=== PATIENT | male | born 1995 | race Caucasian/White ===

== ENCOUNTER 2020-04-16 17:27 | Observation (INO) | payer OTHER, SELFPAY ==
[2020-04-16] VITALS (19 sets, daily range): BP systolic 122–147; BP diastolic 58–91; PULSE 52–86; RESP 11–18; TEMP 36.3–37; O2SAT 98–100; BMI 25.7
--- NOTE | 2020-04-16 | PATH_ITS ---
[facility] Accession Number: [id number] . 01 Material submitted: . appendix - APPENDIX . 01 Clinical history: . STOMACH PAIN, FEVER . 02 Diagnosis: Appendix, Appendectomy: Acute appendicitis. No evidence of neoplasm. MRV 04/22/2020 1241 Local . 02 Electronically signed: . Moses Mars MD, PhD, Pathologist NPI- [id number] . 01 Gross description: . Received in formalin, labeled appendix, and consists of a 7.5 cm in length x 1.0 cm in diameter vermiform appendix with minimal attached hartman-yellow lobulated mesoappendix. The serosa is hartman-pink and smooth with focal areas of disruption and fibrinous adhesions. Sectioning reveals a hartman-pink focally hemorrhagic mucosa. The lumen measures up to 0.4 cm and the wall thickness measures 0.1 cm. No perforation sites are identified. Addresser sections are submitted to include the en face margin (blue), central cross-sections and bisected tip on cassette A1. ([id number]) /MRV 04/18/2020 1420 Local . 02 Pathologist provided ICD-10: K35.80 . 02 CPT . 140118 Performed at: 01 [facility] [address], [place], [place] [id number] MD Amador Dawn MD Phone: [phone] Performed at: 02 [facility] [address] [place], [place] [id number] MD Romina Sanchez MD Phone: [phone]
--- NOTE | 2020-04-16 17:40 | ED_ITS ---
HPI - Abdominal Pain <[facility] Last Filed: 04/16/20 20:31> General Chief Complaint: Abdominal Pain Stated Complaint: stomach pain, fever Time Seen by Provider: 04/16/20 17:30 Source: patient Mode of arrival: Ambulatory Limitations: no limitations History of Present Illness HPI narrative: This is a 24-year-old male, nonsmoker, who has no contributory medical history presents to ED with chief complain of periumbilical abdominal pain and right lower quadrant pain for last 2 hours. Patient reports nausea but no vomiting. Patient feels chills without fever. He describes pain as constant aching and worse with movement. Patient denies urinary symptoms such as urgency, frequency, dysuria, hematuria. Patient denies bulging in his groin or swelling or pain to his testicular area. Patient reports he occasionally has generalized abdominal pain which radiates to back but this feels different and constant. Patient had last loose bowel movement this morning which was painful. Patient does not have primary care physician. Related Data Home Medications Medication Instructions Recorded Confirmed No Known Home Medications 04/16/20 04/16/20 Allergies Allergy/AdvReac Type Severity Reaction Status Date / Time No Known Drug Allergies Allergy Verified 04/16/20 17:35 Review of Systems <[facility] Last Filed: 04/16/20 20:31> Review of Systems Narrative: General: Denies fever, (+) chills, fatigue, malaise, sweats. HEENT: Denies sinus pain, ear pain, sore throat, difficulty swallowing, dizziness. Respiratory: Denies dyspnea, cough, wheezing, hemoptysis, sputum. Cardiovascular: Denies chest pain, palpitations, orthopnea, edema. Gastrointestinal: See HPI : Denies dysuria, frequency, incontinence, hematuria, urinary retention. Musculoskeletal: Denies weakness, joint pain or bony pain. Skin: Denies rash, skin lesions, or other. Neurologic: Denies weakness, headache, numbness, change in speech, confusion, seizures, incoordination. Psychiatric: No concerning psychosocial issues. 12-point review of systems is negative except for those stated above. Patient History <[facility] Last Filed: 04/16/20 20:31> Medical History No significant past medical history (Acute) Surgical History No pertinent past surgical history (Acute) Social History household members: other Smoking Status: Current every day smoker alcohol intake: current Smoking Status: Never smoker alcohol intake frequency: 0-2 drinks per day Substance Use Type: marijuana Exam <HIGINIO Cagle - Last Filed: 04/16/20 20:31> Narrative Exam Narrative: GEN: Alert, oriented x 3, well appearing and nourished, and in no acute distress. Head: Normal cephalic, atraumatic. No scalp or temporal tenderness, palpable mass or rash. EYES: Pupils are equal, round, and reactive to light and accommodation. E xtraocular muscles are intact bilaterally. There is no subconjunctival hemorrhage, exudate and sclera non-icteric. ENT: Hearing grossly intact. Nose without bleeding, purulent discharge or deviation. Mucous membrane moist, no mucosal lesion. Throat without erythema, tonsillar hypertrophy or exudate. Uvula in midline, airway patent. Neck: Trachea in midline. No JVD, non-tender without lymphadenopathy. No masses or thyroid megaly. Supple, non-tender and no meningeal signs. CARDIAC: Normal regular rate and rhythm without murmurs, gallops, or rubs. No chest wall tenderness. No peripheral edema, cyanosis or pallor. Capillary refill is less than 2 seconds. RESPIRATORY: Lungs are clear to auscultate bilaterally. No cough, wheezes, rales, or rhonchi. No stridor, respiratory distress, increase work of breathing, or accessary muscle used. ABD: Abdomen soft and non-distended. McBurney's point tenderness to palpate. No guarding. Bowel sounds are normal in all 4 quadrants. There is no palpable masses or organomegaly. EXT: Full painless ROM of all extremities with no loss of sensation, strength, effusion or edema. SKIN: Warm, dry, normal color for patient. No erythema, lesions or rash over visible areas. BACK: Nontender without deformity or crepitance. No flank tenderness. NEUROLOGICAL: Alert and oriented to place, time and person. Sensation and motor function intact bilaterally. No facial droops, dysphasia. PSYCHIATRIC: Good judgement and reason, without hallucinations, abnormal affect or abnormal behaviors during the examination. Patient is not suicidal. Initial Vital Signs Initial Vital Signs: Vital Signs Temperature 98.6 F 04/16/20 17:30 Pulse Rate 56 L 04/16/20 17:30 Respiratory Rate 14 04/16/20 17:30 Blood Pressure 141/87 H 04/16/20 17:30 Pulse Oximetry 100 04/16/20 17:30 <Zane Lord DO - Last Filed: 04/17/20 07:27> Initial Vital Signs Initial Vital Signs: Vital Signs Temperature 98.6 F 04/16/20 17:30 Pulse Rate 56 L 04/16/20 17:30 Respiratory Rate 14 04/16/20 17:30 Blood Pressure 141/87 H 04/16/20 17:30 Pulse Oximetry 100 04/16/20 17:30 Scores <[facility] - Last Filed: 04/16/20 20:31> GCS Crocher[place] coma scale eye opening: Spontaneous [place] coma scale verbal response: Orientated [place] coma scale motor response: Obey commands Crocheron coma scale total score: 15 qSOFA Altered Mental Status (GCS <15): No Respiratory rate greater than/equal to 22: No Systolic blood pressure less than or equal to 100: No qSOFA Total: 0 0-1 Not High Risk 1-3 High risk Course <[facility] - Last Filed: 04/16/20 20:31> Orders Ordered: Acetaminophen (Tylenol) 650 mg PO Q6HR [facility] Last Admin: 04/17/20 05:41 Dose: 650 mg Documented by: Admin: 04/17/20 00:19 Dose: 650 mg Documented by: JAYJAY Lactated Ringer's (Lactated Ringers) 1,000 mls @ 120 mls/hr IV CONT [facility] Last Admin: 04/17/20 00:21 Dose: 120 mls/hr Documented by: Infusion: 04/17/20 00:21 Dose: 120 mls/hr Documented by: Infusion: 04/16/20 23:27 Dose: 120 mls/hr Documented by: Admin: 04/16/20 23:04 Dose: 120 mls/hr Documented by: Infusion: 04/16/20 23:04 Dose: 120 mls/hr Documented by: Admin: 04/16/20 21:22 Dose: 120 mls/hr Documented by: CADY Ketorolac Tromethamine (Toradol) 30 mg IV Q6HR PRN PRN Reason: Pain, Severe (7-10) Stop: 04/21/20 21:30 Last Admin: 04/17/20 06:24 Dose: 30 mg Documented by: Admin: 04/17/20 00:22 Dose: 30 mg Documented by: JAYJAY Naloxone HCl (Narcan) 0.2 mg IV Q2MIN PRN PRN Reason: Opiate Reversal Ondansetron HCl (Zofran) 4 mg IV Q8HR PRN PRN Reason: Nausea And Vomiting Last Admin: 04/17/20 00:28 Dose: 4 mg Documented by: JAYJAY Oxycodone HCl (Percolone) 5 mg PO Q6HR PRN PRN Reason: Pain, Moderate (4-6) Last Admin: 04/17/20 01:24 Dose: 5 mg Documented by: TRU Scopolamine (Transderm-Scop) 1 patch TOP PRN PRN PRN Reason: Nausea Discontinued Medications Bupivacaine HCl (Sensorcaine 0.25% (Pf)) 30 ml INJ NOW ONE Stop: 04/16/20 22:26 Last Admin: 04/16/20 22:25 Dose: 30 ml Documented by: MORRIS Fentanyl (Sublimaze) 0 mcg IV Q5MIN PRN PRN Reason: Pain, Severe (7-10) Hydromorphone HCl (Dilaudid) 0 mg IV Q5MIN PRN PRN Reason: Pain, Mild (1-3) Sodium Chloride (Normal Saline 0.9%) 1,000 mls @ 150 mls/hr IV CONT JEANNETTE Last Admin: 04/16/20 17:50 Dose: 150 mls/hr Documented by: PIETRO Piperacillin/Tazobactam/Dextrose (Zosyn) 3.375 gm in 50 mls @ 100 mls/hr IV NOW ONE Stop: 04/16/20 19:09 Last Infusion: 04/16/20 20:17 Dose: 0 mls/hr Documented by: Admin: 04/16/20 19:46 Dose: 100 mls/hr Documented by: PIETRO Ketorolac Tromethamine (Toradol) 15 mg IV NOW ONE Stop: 04/16/20 17:40 Last Admin: 04/16/20 17:51 Dose: 15 mg Documented by: PIETRO Ondansetron HCl (Zofran) 4 mg IV NOW ONE Stop: 04/16/20 17:40 Last Admin: 04/16/20 17:51 Dose: 4 mg Documented by: PIETRO Ondansetron HCl (Zofran) 4 mg IV NOW PRN PRN Reason: Nausea And Vomiting Oxycodone HCl (Percolone) 5 mg PO PACUNOW PRN PRN Reason: Mild or moderate pain Reevaluation(s) Reevaluation #1: Patient reports pain and nausea improved after medications. Updated patient on CT findings of acute appendicitis which requires surgical interventions. Patient has no further questions at this time. Time: 18:44 Consultations Consultation #1: Dr. Dodge currently in OR doing surgery and informed the patient's case. Covid test was requested and being done. Time: 18:45 Consultation #2: Dr. Dodge called as soon as he is out in OR. He kindly accepted patient's care for appendectomy. Time: 20:05 Vital Signs Vital signs: Vital Signs - 8 hr 04/16/20 17:30 04/16/20 17:31 04/16/20 17:32 Temperature 98.6 F Pulse Rate 56 L 55 L Respiratory Rate 14 Blood Pressure 141/87 H 141/87 H Pulse Oximetry 100 99 04/16/20 18:00 04/16/20 18:30 04/16/20 19:00 Temperature Pulse Rate 52 L 71 77 Respiratory Rate Blood Pressure 144/70 H 142/65 H 140/63 Pulse Oximetry 100 100 100 04/16/20 19:30 04/16/20 19:31 04/16/20 20:00 Temperature Pulse Rate 76 76 70 Respiratory Rate Blood Pressure 127/58 L Pulse Oximetry 99 99 100 04/16/20 20:01 Temperature Pulse Rate 76 Respiratory Rate Blood Pressure 133/60 Pulse Oximetry 99 <Zane Lord, DO - Last Filed: 04/17/20 07:27> Orders Ordered: Acetaminophen (Tylenol) 650 mg PO Q6HR JEANNETTE Last Admin: 04/17/20 05:41 Dose: 650 mg Documented by: Admin: 04/17/20 00:19 Dose: 650 mg Documented by: JAYJAY Lactated Ringer's (Lactated Ringers) 1,000 mls @ 120 mls/hr IV CONT JEANNETTE Last Admin: 04/17/20 00:21 Dose: 120 mls/hr Documented by: Infusion: 04/17/20 00:21 Dose: 120 mls/hr Documented by: Infusion: 04/16/20 23:27 Dose: 120 mls/hr Documented by: Admin: 04/16/20 23:04 Dose: 120 mls/hr Documented by: Infusion: 04/16/20 23:04 Dose: 120 mls/hr Documented by: Admin: 04/16/20 21:22 Dose: 120 mls/hr Documented by: CADY Ketorolac Tromethamine (Toradol) 30 mg IV Q6HR PRN PRN Reason: Pain, Severe (7-10) Stop: 04/21/20 21:30 Last Admin: 04/17/20 06:24 Dose: 30 mg Documented by: Admin: 04/17/20 00:22 Dose: 30 mg Documented by: JAYJAY Naloxone HCl (Narcan) 0.2 mg IV Q2MIN PRN PRN Reason: Opiate Reversal Ondansetron HCl (Zofran) 4 mg IV Q8HR PRN PRN Reason: Nausea And Vomiting Last Admin: 04/17/20 00:28 Dose: 4 mg Documented by: JAYJAY Oxycodone HCl (Percolone) 5 mg PO Q6HR PRN PRN Reason: Pain, Moderate (4-6) Last Admin: 04/17/20 01:24 Dose: 5 mg Documented by: TRU Scopolamine (Transderm-Scop) 1 patch TOP PRN PRN PRN Reason: Nausea Discontinued Medications Bupivacaine HCl (Sensorcaine 0.25% (Pf)) 30 ml INJ NOW ONE Stop: 04/16/20 22:26 Last Admin: 04/16/20 22:25 Dose: 30 ml Documented by: MORRIS Fentanyl (Sublimaze) 0 mcg IV Q5MIN PRN PRN Reason: Pain, Severe (7-10) Hydromorphone HCl (Dilaudid) 0 mg IV Q5MIN PRN PRN Reason: Pain, Mild (1-3) Sodium Chloride (Normal Saline 0.9%) 1,000 mls @ 150 mls/hr IV CONT JEANNETTE Last Admin: 04/16/20 17:50 Dose: 150 mls/hr Documented by: PIETRO Piperacillin/Tazobactam/Dextrose (Zosyn) 3.375 gm in 50 mls @ 100 mls/hr IV NOW ONE Stop: 04/16/20 19:09 Last Infusion: 04/16/20 20:17 Dose: 0 mls/hr Documented by: Admin: 04/16/20 19:46 Dose: 100 mls/hr Documented by: PIETRO Ketorolac Tromethamine (Toradol) 15 mg IV NOW ONE Stop: 04/16/20 17:40 Last Admin: 04/16/20 17:51 Dose: 15 mg Documented by: PIETRO Ondansetron HCl (Zofran) 4 mg IV NOW ONE Stop: 04/16/20 17:40 Last Admin: 04/16/20 17:51 Dose: 4 mg Documented by: PIETRO Ondansetron HCl (Zofran) 4 mg IV NOW PRN PRN Reason: Nausea And Vomiting Oxycodone HCl (Percolone) 5 mg PO PACUNOW PRN PRN Reason: Mild or moderate pain Vital Signs Vital signs: Vital Signs - 8 hr 04/16/20 17:30 04/16/20 17:31 04/16/20 17:32 Temperature 98.6 F Pulse Rate 56 L 55 L Respiratory Rate 14 Blood Pressure 141/87 H 141/87 H Pulse Oximetry 100 99 04/16/20 18:00 04/16/20 18:30 04/16/20 19:00 Temperature Pulse Rate 52 L 71 77 Respiratory Rate Blood Pressure 144/70 H 142/65 H 140/63 Pulse Oximetry 100 100 100 04/16/20 19:30 04/16/20 19:31 04/16/20 20:00 Temperature Pulse Rate 76 76 70 Respiratory Rate Blood Pressure 127/58 L Pulse Oximetry 99 99 100 04/16/20 20:01 Temperature Pulse Rate 76 Respiratory Rate Blood Pressure 133/60 Pulse Oximetry 99 MDM - Abdominal Pain <Ryder HIGINIO Kang - Last Filed: 04/16/20 20:31> Differential Diagnosis Differential diagnosis: Likely acute appendicitis, calculus of kidney and other (UTI, ) Medical Records Attestation: I reviewed the patient's medical records. Lab Data Attestation: I reviewed the patient's lab results. Result diagrams: 04/16/20 17:35 04/16/20 17:35 Labs: Lab Results 04/16/20 04/16/20 04/16/20 Range/Units 17:35 17:35 17:35 WBC 10.0 (4.5-11.0) X10^3/uL RBC 4.90 (4.5-5.9) X10^6/uL Hgb 15.1 (13.5-17.5) g/dL Hct 43.5 (41-53) % MCV 88.9 (80-100) fL MCH 30.9 (26-34) PG MCHC 34.8 (30-36) % RDW 12.8 (11.6-14.8) % Plt Count 222 (150-400) X10^3/uL Neut % (Auto) 70.6 (50-75) % Lymph % (Auto) 23.2 L (25-40) % [place] % (Auto) 4.7 (3-14) % Eos % (Auto) 0.9 L (2-4) % Baso % (Auto) 0.6 (0-2) % Neut # (Auto) 7000 (3157-5925) /uL Lymph # (Auto) 2300 (5002-0585) /uL [place] # (Auto) 500 (0-900) /uL Eos # (Auto) 100 (0-450) /uL Baso # (Auto) 100 (0-100) /uL Sodium 138 (137-145) mmol/L Potassium 3.4 (3.4-5.1) mmol/L Chloride 103 (98-107) mmol/L Carbon Dioxide 27 (22-32) mmol/L BUN 15 (9-20) mg/dL Creatinine 0.97 (0.66-1.25) mg/dL Estimated GFR > 60.0 (>60) mL/min BUN/Creatinine Ratio 15.5 (6-22) Glucose 108 H (70-100) mg/dL Lactate 1.6 (0.7-2.1) mmol/L Calcium 9.3 (8.4-10.2) mg/dL Total Bilirubin 0.9 (0.2-1.3) mg/dL AST 26 (17-59) IU/L ALT 24 (<50) IU/L Alkaline Phosphatase 69 (38-126) U/L Total Protein 7.7 (6.3-8.2) g/dL Albumin 4.6 (3.5-5.0) g/dL Globulin 3.1 (1.7-4.1) g/dL Albumin/Globulin Ratio 1.5 (1.0-2.8) Lipase 56 (23-300) U/L COVID-19 PCR (Negative) 04/16/20 Range/Units 18:45 WBC (4.5-11.0) X10^3/uL RBC (4.5-5.9) X10^6/uL Hgb (13.5-17.5) g/dL Hct (41-53) % MCV (80-100) fL MCH (26-34) PG MCHC (30-36) % RDW (11.6-14.8) % Plt Count (150-400) X10^3/uL Neut % (Auto) (50-75) % Lymph % (Auto) (25-40) % [place] % (Auto) (3-14) % Eos % (Auto) (2-4) % Baso % (Auto) (0-2) % Neut # (Auto) (6516-9902) /uL Lymph # (Auto) (8928-2451) /uL [place] # (Auto) (0-900) /uL Eos # (Auto) (0-450) /uL Baso # (Auto) (0-100) /uL Sodium (137-145) mmol/L Potassium (3.4-5.1) mmol/L Chloride (98-107) mmol/L Carbon Dioxide (22-32) mmol/L BUN (9-20) mg/dL Creatinine (0.66-1.25) mg/dL Estimated GFR (>60) mL/min BUN/Creatinine Ratio (6-22) Glucose (70-100) mg/dL Lactate (0.7-2.1) mmol/L Calcium (8.4-10.2) mg/dL Total Bilirubin (0.2-1.3) mg/dL AST (17-59) IU/L ALT (<50) IU/L Alkaline Phosphatase (38-126) U/L Total Protein (6.3-8.2) g/dL Albumin (3.5-5.0) g/dL Globulin (1.7-4.1) g/dL Albumin/Globulin Ratio (1.0-2.8) Lipase (23-300) U/L COVID-19 PCR Negative (Negative) Imaging Data CT scan - abdomen/pelvis: Radiologist's Impression: [address] [address] [address] Scan Report Signed Patient: Toy Reed PMR#: [id number] : 1995Acct:[id number] Age/Sex: MDate of Service: 04/16/20 Loc: ED Accession Number: [id number] Procedure: CT abdomen pelvis w con Ordering Provider: Ryder Kang PROCEDURE: CT ABDOMEN PELVIS W CON INDICATIONS: RLQ pain, nausea TECHNIQUE: After the administration of intravenous contrast, 5 mm thick sections acquired from the diaphragm to the symphysis. 5 mm coronal and sagittal reformats were acquired. For radiation dose reduction, the following was used: automated exposure control, adjustment of mA and/or kV according to patient size. COMPARISON: None. FINDINGS: Image quality: Excellent. ABDOMEN: Lung bases: Lung bases are clear. Heart size is normal. Solid organs: Liver is normal in size and enhancement. Gallbladder is unremarkable. Biliary system is non dilated. Pancreas enhances normally. Spleen is normal in size and enhancement. No adrenal nodules. Kidneys demonstrate normal size and enhancement, without hydronephrosis. Peritoneum and bowel: Bowel loops demonstrate normal wall thickness and caliber. No free fluid or air. The appendix is dilated and filled with fluid and inflamed and enhancing. It measures approximately 8 mm in diameter. There is inflammatory change in the surrounding fat. No free air or abscess cavity. Nodes and vessels: No retroperitoneal or mesenteric adenopathy by size criteria. Aorta and inferior vena cava are normal in size. Miscellaneous: No ventral hernias. PELVIS: Genitourinary: Bladder wall thickness is normal. Miscellaneous: No inguinal hernias or adenopathy. Bones: No suspicious bony lesions. No vertebral body compression fractures. IMPRESSION: Acute appendicitis with suspicion for impending rupture Dictated by: Grzegorz Molina M.D. on 04/16/2020 at 18:25 Approved by: Grzegorz Molina M.D. on 04/16/2020 at 18:26 [facility] Narrative Medical decision making narrative: This is a 24-year-old male without contributory medical history presents to ED with nausea and right lower quadrant and periumbilical abdominal pain 2 hours before coming into ED. patient reports last bowel movement this morning which was loose painful. Patient is afebrile but with chills. Nontoxic appearing. Physical exam consistent with appendicitis with positive McBurney's point tenderness. CT test shows enlarged appendectomy filled with fluid and inflamed and measures approximately 8 mm in diameter. There is inflammatory changes seen in the or surround and fat. No free air or abscess cavity seen with suspicion for impending rupture. CBC shows no leukocytosis. Unremarkable chemistry test. Normal lactate and lipase. Dr. Dodge informed through OR staff. Covid swab is pending. Pain and nausea well managed after Toradol and Zofran. Patient is kept NPO since 1600 (snack bar) and last liquid fluid taken at noon. Ordered Zosyn 3.375 gm IV. <Zane Lord DO - Last Filed: 04/17/20 07:27> Lab Data Labs: Lab Results 04/16/20 04/16/20 04/16/20 Range/Units 17:35 17:35 17:35 WBC 10.0 (4.5-11.0) X10^3/uL RBC 4.90 (4.5-5.9) X10^6/uL Hgb 15.1 (13.5-17.5) g/dL Hct 43.5 (41-53) % MCV 88.9 (80-100) fL MCH 30.9 (26-34) PG MCHC 34.8 (30-36) % RDW 12.8 (11.6-14.8) % Plt Count 222 (150-400) X10^3/uL Neut % (Auto) 70.6 (50-75) % Lymph % (Auto) 23.2 L (25-40) % [place] % (Auto) 4.7 (3-14) % Eos % (Auto) 0.9 L (2-4) % Baso % (Auto) 0.6 (0-2) % Neut # (Auto) 7000 (3755-1529) /uL Lymph # (Auto) 2300 (7616-9267) /uL [place] # (Auto) 500 (0-900) /uL Eos # (Auto) 100 (0-450) /uL Baso # (Auto) 100 (0-100) /uL Sodium 138 (137-145) mmol/L Potassium 3.4 (3.4-5.1) mmol/L Chloride 103 (98-107) mmol/L Carbon Dioxide 27 (22-32) mmol/L BUN 15 (9-20) mg/dL Creatinine 0.97 (0.66-1.25) mg/dL Estimated GFR > 60.0 (>60) mL/min BUN/Creatinine Ratio 15.5 (6-22) Glucose 108 H (70-100) mg/dL Lactate 1.6 (0.7-2.1) mmol/L Calcium 9.3 (8.4-10.2) mg/dL Total Bilirubin 0.9 (0.2-1.3) mg/dL AST 26 (17-59) IU/L ALT 24 (<50) IU/L Alkaline Phosphatase 69 (38-126) U/L Total Protein 7.7 (6.3-8.2) g/dL Albumin 4.6 (3.5-5.0) g/dL Globulin 3.1 (1.7-4.1) g/dL Albumin/Globulin Ratio 1.5 (1.0-2.8) Lipase 56 (23-300) U/L COVID-19 PCR (Negative) 04/16/20 Range/Units 18:45 WBC (4.5-11.0) X10^3/uL RBC (4.5-5.9) X10^6/uL Hgb (13.5-17.5) g/dL Hct (41-53) % MCV (80-100) fL MCH (26-34) PG MCHC (30-36) % RDW (11.6-14.8) % Plt Count (150-400) X10^3/uL Neut % (Auto) (50-75) % Lymph % (Auto) (25-40) % [place] % (Auto) (3-14) % Eos % (Auto) (2-4) % Baso % (Auto) (0-2) % Neut # (Auto) (6105-9398) /uL Lymph # (Auto) (6814-4258) /uL [place] # (Auto) (0-900) /uL Eos # (Auto) (0-450) /uL Baso # (Auto) (0-100) /uL Sodium (137-145) mmol/L Potassium (3.4-5.1) mmol/L Chloride (98-107) mmol/L Carbon Dioxide (22-32) mmol/L BUN (9-20) mg/dL Creatinine (0.66-1.25) mg/dL Estimated GFR (>60) mL/min BUN/Creatinine Ratio (6-22) Glucose (70-100) mg/dL Lactate (0.7-2.1) mmol/L Calcium (8.4-10.2) mg/dL Total Bilirubin (0.2-1.3) mg/dL AST (17-59) IU/L ALT (<50) IU/L Alkaline Phosphatase (38-126) U/L Total Protein (6.3-8.2) g/dL Albumin (3.5-5.0) g/dL Globulin (1.7-4.1) g/dL Albumin/Globulin Ratio (1.0-2.8) Lipase (23-300) U/L COVID-19 PCR Negative (Negative) Discharge Plan Departure Patient Disposition: Admitted as Observation Clinical Impression: Acute appendicitis Qualifiers: Acute appendicitis type: unspecified acute appendicitis type Qualified Code(s): K35.80 - Unspecified acute appendicitis Discharge Date/Time: 04/16/20 21:31 Admit Date/Time: 04/16/20 20:25 Admit Provider: Mulugeta Dodge <Zane Lord DO - Last Filed: 04/17/20 07:27> Cosign ED Attending Cosignature Attestation: I was immediately available in the department for consultation. This documentation has been reviewed and I agree with assessment and plan. Supervised by Zane Lord DO
[2020-04-16 17:45] LABS: Add Manual Diff / Slide Review NO; Basophils Absolute Auto 100 /uL (0-100); Basophils Percent Auto 0.6 % (0-2); Eosinophils Absolute Auto 100 /uL (0-450); Eosinophils Percent Auto 0.9 % (2-4); Hematocrit 43.5 % (41-53); Hemoglobin 15.1 g/dL (13.5-17.5); Lymphocytes Absolute Auto 2300 /uL (1100-4500); Lymphocytes Percent Auto 23.2 % (25-40); Mean Corpuscular HGB Conc 34.8 % (30-36); Mean Corpuscular Hemoglobin 30.9 PG (26-34); Mean Corpuscular Volume 88.9 fL (80-100); Monocytes Absolute Auto 500 /uL (0-900); Monocytes Percent Auto 4.7 % (3-14); Neutrophils Absolute Auto 7000 /uL (1500-7000); Neutrophils Percent Auto 70.6 % (50-75); Platelet Count 222 X10^3/uL (150-400); Red Cell Distribution Width 12.8 % (11.6-14.8)
[2020-04-16] MEDS: SODIUM CHLORIDE 0.9% 1,000 ML 150 ML IV (17:50)
[2020-04-16] MEDS: KETOROLAC 60 MG/2 ML VIAL 15 MG IV (17:51)
[2020-04-16] MEDS: ONDANSETRON 4 MG/2 ML INJ IV (17:51)
[2020-04-16 17:57] LABS: Alanine Aminotransferase 24 IU/L (<50); Albumin 4.6 g/dL (3.5-5.0); Albumin Globulin Ratio 1.5 (1.0-2.8); Alkaline Phosphatase 69 U/L (38-126); Aspartate Aminotransferase 26 IU/L (17-59); BUN Creatinine Ratio 15.5 (6-22); Bilirubin Total 0.9 mg/dL (0.2-1.3); Blood Urea Nitrogen 15 mg/dL (9-20); Calcium 9.3 mg/dL (8.4-10.2); Carbon Dioxide 27 mmol/L (22-32); Chloride 103 mmol/L (98-107); Estimated Glomerular Filt Rate > 60.0 mL/min (>60); Globulin 3.1 g/dL (1.7-4.1); Glucose 108 mg/dL (70-100); HEMOLYSIS 33 (0-50); Lactate (Lactic Acid) 1.6 mmol/L (0.7-2.1); Lipase 56 U/L (23-300); Potassium 3.4 mmol/L (3.4-5.1); Sodium 138 mmol/L (137-145); Total Protein 7.7 g/dL (6.3-8.2)
--- NOTE | 2020-04-16 18:08 | DI.CT.S_ITS ---
PROCEDURE: CT ABDOMEN PELVIS W CON INDICATIONS: RLQ pain, nausea TECHNIQUE: After the administration of intravenous contrast, 5 mm thick sections acquired from the diaphragm to the symphysis. 5 mm coronal and sagittal reformats were acquired. For radiation dose reduction, the following was used: automated exposure control, adjustment of mA and/or kV according to patient size. COMPARISON: None. FINDINGS: Image quality: Excellent. ABDOMEN: Lung bases: Lung bases are clear. Heart size is normal. Solid organs: Liver is normal in size and enhancement. Gallbladder is unremarkable. Biliary system is non dilated. Pancreas enhances normally. Spleen is normal in size and enhancement. No adrenal nodules. Kidneys demonstrate normal size and enhancement, without hydronephrosis. Peritoneum and bowel: Bowel loops demonstrate normal wall thickness and caliber. No free fluid or air. The appendix is dilated and filled with fluid and inflamed and enhancing. It measures approximately 8 mm in diameter. There is inflammatory change in the surrounding fat. No free air or abscess cavity. Nodes and vessels: No retroperitoneal or mesenteric adenopathy by size criteria. Aorta and inferior vena cava are normal in size. Miscellaneous: No ventral hernias. PELVIS: Genitourinary: Bladder wall thickness is normal. Miscellaneous: No inguinal hernias or adenopathy. Bones: No suspicious bony lesions. No vertebral body compression fractures. IMPRESSION: Acute appendicitis with suspicion for impending rupture Dictated by: Grzegorz Molina M.D. on 04/16/2020 at 18:25 Approved by: Grzegorz Molina M.D. on 04/16/2020 at 18:26
[2020-04-16 19:21] LABS: COVID19 -Nasal RAPID Negative (Negative)
[2020-04-16] MEDS: PIPERACILLIN-TAZO 3.375 GM/50 ML FROZ.PIGGY IV (19:46)
--- NOTE | 2020-04-16 20:41 | PM.HP.1 ---
History of Present Illness History of Present Illness Date Patient Seen: 04/16/20 Time Patient Seen: 20:41 Chief complaint: stomach pain, fever Narrative: Toy is a healthy 24-year-old male seen in the emergency room consultation for acute appendicitis. Today he developed periumbilical pain which migrated to the right lower quadrant was associated with nausea. Admission CT abdomen pelvis was obtained which demonstrates a mildly dilated appendix to 8 mm with some surrounding stranding no free air or abscess. White blood cell count 10 afebrile. He received Zosyn in the emergency room. No prior abdominal surgery Patient History Medical History No significant past medical history (Acute) Surgical History No pertinent past surgical history (Acute) Family & Social History Safety & Behavioral: Feels Safe in Current Yes Environment Been Physically Hurt or No Threatened By a Person Tobacco & Substance use: Smoking Status Never smoker alcohol intake frequency 0-2 drinks per day Substance Use Type marijuana Meds Home Medications and Allergies Home Medications Medication Instructions Recorded Confirmed Type No Known Home Medications 04/16/20 04/16/20 History Allergies Allergy/AdvReac Type Severity Reaction Status Date / Time No Known Drug Allergies Allergy Verified 04/16/20 17:35 Review of Systems Review of Systems Narrative: A 10 point review of systems is negative except as noted in the HPI Exam Vital Signs (past 8 hours): - 04/16/20 17:30 04/16/20 17:31 04/16/20 17:32 Temperature 98.6 F Pulse Rate 56 L 55 L Respiratory Rate 14 Blood Pressure 141/87 H 141/87 H Pulse Oximetry 100 99 04/16/20 18:00 04/16/20 18:30 04/16/20 19:00 Temperature Pulse Rate 52 L 71 77 Respiratory Rate Blood Pressure 144/70 H 142/65 H 140/63 Pulse Oximetry 100 100 100 04/16/20 19:30 04/16/20 19:31 04/16/20 20:00 Temperature Pulse Rate 76 76 70 Respiratory Rate Blood Pressure 127/58 L Pulse Oximetry 99 99 100 04/16/20 20:01 Temperature Pulse Rate 76 Respiratory Rate Blood Pressure 133/60 Pulse Oximetry 99 Oxygen Delivery Method Room Air Narrative Exam Narrative: General-no acute distress, well nourished adult male HEENT-moist mucous membranes, no scleral icterus Neck-supple, no lymphadenopathy Chest- non labored respirations, clear to auscultation bilaterally Cardiac-regular rate no peripheral edema Abdomen-tender right lower quadrant no guarding Extremities-warm, well perfused Neurological-alert and oriented, no focal deficits Objective Labs Result Diagrams: 04/16/20 17:35 04/16/20 17:35 Labs: Laboratory Results - last 24 hr 04/16/20 04/16/20 04/16/20 17:35 17:35 17:35 WBC 10.0 RBC 4.90 Hgb 15.1 Hct 43.5 MCV 88.9 MCH 30.9 MCHC 34.8 RDW 12.8 Plt Count 222 Neut % (Auto) 70.6 Lymph % (Auto) 23.2 L [place] % (Auto) 4.7 Eos % (Auto) 0.9 L Baso % (Auto) 0.6 Neut # (Auto) 7000 Lymph # (Auto) 2300 [place] # (Auto) 500 Eos # (Auto) 100 Baso # (Auto) 100 Sodium 138 Potassium 3.4 Chloride 103 Carbon Dioxide 27 BUN 15 Creatinine 0.97 Estimated GFR > 60.0 BUN/Creatinine Ratio 15.5 Glucose 108 H Lactate 1.6 Calcium 9.3 Total Bilirubin 0.9 AST 26 ALT 24 Alkaline Phosphatase 69 Total Protein 7.7 Albumin 4.6 Globulin 3.1 Albumin/Globulin Ratio 1.5 Lipase 56 COVID-19 PCR 04/16/20 18:45 WBC RBC Hgb Hct MCV MCH MCHC RDW Plt Count Neut % (Auto) Lymph % (Auto) [place] % (Auto) Eos % (Auto) Baso % (Auto) Neut # (Auto) Lymph # (Auto) [place] # (Auto) Eos # (Auto) Baso # (Auto) Sodium Potassium Chloride Carbon Dioxide BUN Creatinine Estimated GFR BUN/Creatinine Ratio Glucose Lactate Calcium Total Bilirubin AST ALT Alkaline Phosphatase Total Protein Albumin Globulin Albumin/Globulin Ratio Lipase COVID-19 PCR Negative Assessment & Plan Assessment and plan (1) Acute appendicitis: Qualifiers: Acute appendicitis type: unspecified acute appendicitis type Qualified Code(s): K35.80 - Unspecified acute appendicitis Status: Acute Assessment & Plan narrative: 24-year-old healthy male with acute appendicitis for 1 day duration. Reviewed his CT abdomen pelvis which demonstrates acute appendicitis without abscess. Recommended that we proceed with a laparoscopic appendectomy. Technical details were discussed. Operative risks including bleeding infection damage to surrounding structures, conversion to open were discussed. His questions have been answered he is in agreement with this plan will admit for observation postoperatively
[2020-04-16] MEDS: LACTATED RINGERS 1,000 ML 120 ML IV ×2 (21:22→23:04)
--- NOTE | 2020-04-16 22:18 | SUR.OPER ---
Supine on padded OR bed, head on pillow, left arm padded and tucked at side, right arm on arm board <90 degrees abduction, legs uncrossed, safety belt at thigh, tape over blanket over lower legs .
[2020-04-16] MEDS: BUPIVACAINE 0.25% (PF) VIAL 30 ML INJ (22:25)
--- NOTE | 2020-04-16 22:56 | PM.OP.1 ---
Operative Date/Time/Diagnoses Date of procedure: 04/16/20 Time of procedure: 22:56 Pre-op diagnosis: Acute appendicitis Post-op diagnosis: same Procedure & Clinicians Procedure: Laparoscopic appendectomy Same procedure as scheduled: Yes Indications: 24-year-old male 1 day of abdominal pain found have acute appendicitis on CT scan. Click Yes if Unassisted: Yes Anesthesia Type: General Operative Notes Findings: Acute non perforated appendicitis Estimated Blood Loss (mL): 20 Procedure in detail: Patient was brought to the operating room placed supine on the table. Bilateral lower extremity compression devices were applied. Anesthesia was induced and they intubated with an endotracheal tube. They received 3.375 g of Zosyn prior to skin incision. The left arm was tucked and appropriately padded. Patient was sterilely catheterized. They were prepped and draped in sterile fashion. Time-out was performed. An infraumbilical incision was made the umbilical stalk was grasped and elevated and incision was made and the abdomen was entered atraumatically. A 12 mm balloon trocar was then placed through the incision and pneumoperitoneum of 14 mm Hg was established. The scope was then inserted and the abdomen inspected, there was no evidence of injury upon entry. Two 5 mm ports were placed under direct visualization, one in the left lower quadrant and second in the lower midline. A thorough laparoscopic evaluation was performed inspecting all four quadrants. The patient was then tilted right side up. The small bowel was then swept to the upper aspect of the abdomen. The tenie were followed to the base of the cecum where the appendix was identified. The appendix was was mobilized using primarily blunt dissection. It was acutely inflamed but not perforated. The appendix was grasped with a the mesentery was carefully skeletonized and divided using electrocautery. The appendiceal artery was identified and was clipped using the 5 mm clip tape machine tailer. The appendix was then amputated flush at the cecum using the endo-stapler blue load. The specimen was retrieved using a endoscopic retrieval bad through the 10 mm infra-umbilical port. The right paracolic gutter and the pouch of Shad were irrigated The 5 mm ports were then removed under direct visualization. The umbilical fascial incision was closed with 0 Vicryl in a figure-eight fashion. The skin wounds were irrigated and closed with 4-0 Monocryl followed by the application of Dermabond. Sponge instrument count at the end of the operation was correct. The patient tolerated procedure well was extubated and transferred to the postoperative care unit in stable condition. Complications: none Post-operative Condition: stable Disposition: Acute Care
[2020-04-17] VITALS (8 sets, daily range): BP systolic 125–154; BP diastolic 64–74; PULSE 51–64; RESP 16–18; TEMP 36.4–36.6; O2SAT 97–100
[2020-04-17] MEDS: ACETAMINOPHEN 325 MG TABLET 650 MG PO ×2 (00:19→05:41)
[2020-04-17] MEDS: LACTATED RINGERS 1,000 ML 120 ML IV ×2 (00:21→09:01)
[2020-04-17] MEDS: KETOROLAC 30 MG/ML VIAL IV ×2 (00:22→06:24)
[2020-04-17] MEDS: ONDANSETRON 4 MG/2 ML INJ IV (00:28)
[2020-04-17] MEDS: OXYCODONE IR 5 MG TABLET PO ×2 (01:24→07:44)
--- NOTE | 2020-04-17 02:43 | PC.NURSE ---
pt came to room 205 at 2345. This mortgage underwriter received report from PACU nurse. Pt was groggy due to anesthesia but was able to answer questions appropriately. Pt complains of throat irritability that makes me cough and in turn makes my abdomen hurt. KASIA Gaffney gave pt ice chips and pt was able to to tolerate the ice chip. Pt complains of pain 7/10 and nausea. this mortgage underwriter medicated pt as ordered. This mortgage underwriter explained to pt functions of bed and call light. Pt was able to call for help appropriately and was able to go to the bathroom with a standby assist. Pt pain was reassessed and went sown to 6/10. Pt was able to tolerate a piece of saltine cracker. Will continue to monitor
== END 2020-04-17 12:30 | disposition home or self-care (01) ==
LOC: ED 20:09 → AC 20:26
PROVIDERS: Admitting Provider Surgery; Emergency Provider Nurse Practitioner Family; Referring Provider Nurse Practitioner Family; Visit Provider Surgery
PROC: 0DTJ4ZZ Resection of Appendix, Percutaneous Endoscopic Approach (ICD-10-PCS; CPT 44970; principal; 2020-04-16 21:00)
DX: K35.80 Unspecified acute appendicitis (principal); R10.31 Right lower quadrant pain; Z11.59 Encounter for screening for other viral diseases
CPT/HCPCS: 44970; 36415; 74177; 80053; 83605; 83690; 85025; 87635; 94762; 96361; 96365; 96375; 96376; 99219; 99284; G0378; J0330; J1100; J1885; J2250; J2405; J2543; J2704; J3010

== ENCOUNTER 2020-04-25 09:42 | Inpatient (IN) | payer OTHER, SELFPAY ==
[2020-04-16 23:48] VITALS: BMI 25.7
[2020-04-25] VITALS (19 sets, daily range): BP systolic 130–153; BP diastolic 60–92; PULSE 86–125; RESP 14–24; TEMP 36.1–37.6; O2SAT 94–100; BMI 23.7
--- NOTE | 2020-04-25 10:31 | DI.CT.S_ITS ---
PROCEDURE: CT ABDOMEN PELVIS W CON INDICATIONS: IV contrast only/abdominal pain/fevers/recent surgery TECHNIQUE: After the administration of intravenous contrast, 5 mm thick sections acquired from the diaphragm to the symphysis. 5 mm coronal and sagittal reformats were acquired. For radiation dose reduction, the following was used: automated exposure control, adjustment of mA and/or kV according to patient size. COMPARISON: [facility], CT, CT ABDOMEN PELVIS W CON, 04/16/2020, 18:14. FINDINGS: Image quality: Excellent. ABDOMEN: Lung bases: Lung bases are clear. Heart size is normal. Solid organs: Liver is normal in size and enhancement. Gallbladder is unremarkable. Biliary system is non dilated. Pancreas enhances normally. Spleen is normal in size and enhancement. No adrenal nodules. Kidneys demonstrate normal size and enhancement, without hydronephrosis. Peritoneum and bowel: Status post interval appendectomy. There is a new, large, heterogeneous mixed density fluid collection extending along the entire right lateral abdomen measuring at least 11.1 cm x 7.9 cm in transverse dimension and 16.8 cm in craniocaudal dimension. There are irregular hyperdense foci noted within this collection suspicious for acute hemorrhage. Additionally, there is extensive hyperdense fluid seen throughout the abdomen and pelvis likely representing hemoperitoneum. There is early rim enhancement of the fluid collection predominantly near the posterior margin of the right hepatic lobe and right pericolic gutter. There are few locules of internal gas. Remaining bowel loops demonstrate normal wall thickness and caliber. Nodes and vessels: No retroperitoneal or mesenteric adenopathy by size criteria. Aorta and inferior vena cava are normal in size. Miscellaneous: No ventral hernias. PELVIS: Genitourinary: Bladder wall thickness is normal. Miscellaneous: No inguinal hernias or adenopathy. Bones: No suspicious bony lesions. No vertebral body compression fractures. IMPRESSION: Status post interval appendectomy with development of a large heterogeneous, mixed density fluid collection extending along the entire right lateral abdomen with early, near complete rim enhancement and scattered locules of gas. Findings are concerning for developing abscess. Concurrent hemorrhage is suspected. Additionally, there is a moderate-large amount of scattered hyperdense free fluid involving the abdomen and pelvis which is consistent with hemoperitoneum. Recommend further evaluation with surgical consultation. Findings were discussed with Dr. Drew of the emergency department at 1250 hrs PST Dictated by: Isaias Garner M.D. on 04/25/2020 at 11:43 [place] Approved by: Isaias Garner M.D. on 04/25/2020 at 12:08
[2020-04-25 11:06] LABS: Add Manual Diff / Slide Review NO; Basophils Absolute Auto 100 /uL (0-100); Basophils Percent Auto 0.6 % (0-2); Eosinophils Absolute Auto 100 /uL (0-450); Eosinophils Percent Auto 0.7 % (2-4); Hematocrit 28.6 % (41-53); Hemoglobin 9.6 g/dL (13.5-17.5); Lymphocytes Absolute Auto 1100 /uL (1100-4500); Lymphocytes Percent Auto 7.2 % (25-40); Mean Corpuscular HGB Conc 33.4 % (30-36); Mean Corpuscular Hemoglobin 29.5 PG (26-34); Mean Corpuscular Volume 88.4 fL (80-100); Monocytes Absolute Auto 2100 /uL (0-900); Monocytes Percent Auto 14.2 % (3-14); Neutrophils Absolute Auto 11600 /uL (1500-7000); Neutrophils Percent Auto 77.3 % (50-75); Platelet Count 459 X10^3/uL (150-400); Red Blood Cell Count 3.24 X10^6/uL (4.5-5.9)
[2020-04-25 11:16] LABS: Alanine Aminotransferase 25 IU/L (<50); Albumin 4.1 g/dL (3.5-5.0); Albumin Globulin Ratio 1.1 (1.0-2.8); Alkaline Phosphatase 72 U/L (38-126); Aspartate Aminotransferase 27 IU/L (17-59); BUN Creatinine Ratio 13.7 (6-22); Bilirubin Total 1.2 mg/dL (0.2-1.3); Blood Urea Nitrogen 10 mg/dL (9-20); Calcium 9.5 mg/dL (8.4-10.2); Carbon Dioxide 33 mmol/L (22-32); Chloride 94 mmol/L (98-107); Estimated Glomerular Filt Rate > 60.0 mL/min (>60); Globulin 3.7 g/dL (1.7-4.1); Glucose 110 mg/dL (70-100); HEMOLYSIS < 15 (0-50); Lactate (Lactic Acid) 1.4 mmol/L (0.7-2.1); Potassium 3.8 mmol/L (3.4-5.1); Sodium 133 mmol/L (137-145); Total Protein 7.8 g/dL (6.3-8.2)
--- NOTE | 2020-04-25 11:24 | ED.ABDPAIN ---
HPI - Abdominal Pain General Chief Complaint: Abdominal Pain Stated Complaint: pocket of puss from surgery Time Seen by Provider: 04/25/20 10:31 Source: patient Mode of arrival: Wheelchair History of Present Illness HPI narrative: Patient sent here from Dr. Stanton office, general surgery. For fever abdominal pain. Patient is status post lap appendectomy 1 week. Fever started this past Wednesday. Increased pain. Dr. stanton he spoke with me by phone and sending patient here. Related Data Previous Rx's Medication Instructions Recorded acetaminophen [Tylenol] 650 mg PO QID PRN #60 cap 04/17/20 docusate sodium [Colace] 100 mg PO BID #30 cap 04/17/20 oxycodone 5 mg PO Q6H PRN #30 tab 04/17/20 amoxicillin-pot clavulanate 1 tab PO BID #30 tab 04/28/20 [Augmentin] oxycodone 5 mg PO Q6H PRN #30 tab 04/28/20 Allergies Allergy/AdvReac Type Severity Reaction Status Date / Time No Known Drug Allergies Allergy Verified 04/25/20 10:36 Review of Systems Review of Systems Narrative: GENERAL: Complains chills, fatigue, malaise, fever, denies sweats. HEENT: Denies sinus pain, ear pain, sore throat, difficulty swallowing RESPIRATORY: Denies dyspnea, cough CARDIOVASCULAR: Denies chest pain, palpitations, edema, GASTROINTESTINAL: Denies nausea, vomiting, complains abdominal pain, denies diarrhea, constipation, melena. : Denies dysuria, frequency, hematuria MUSCULOSKELETAL: denies muscle or bony pain SKIN: Denies rash, skin lesions NEUROLOGIC: Denies weakness, headache, numbness, change in speech, confusion PSYCHIATRIC: No SI or HI or hallucinations ROS Unobtainable: All systems reviewed & are unremarkable except as noted in HPI and below Patient History Medical History No significant past medical history (Acute) Surgical History No pertinent past surgical history (Acute) Social History household members: friend(s) Smoking Status: Current every day smoker alcohol intake: current Smoking Status: Current every day smoker alcohol intake frequency: 0-2 drinks per day Substance Use Type: marijuana Exam Narrative Exam Narrative: GENERAL: patient appears stated age. Well-nourished, well-developed patient, in no distress, not toxic not dyspneic HEAD: Normocephalic. EYES: Pupils equal round and reactive. No scleral icterus. No injection no discharge ENT: Mucous membranes moist. No drooling no tongue elevation no trismus no malocclusion NECK: Trachea midline. Non tender CARDIOVASCULAR: Regular rate and rhythm without murmurs, gallops, or rubs. RESPIRATORY: Clear to auscultation. Breath sounds equal bilaterally. No wheezes, rales, or rhonchi. GASTROINTESTINAL: Abdomen soft, reproducible diffuse tenderness greater right lower quadrant. Bowel sounds present. No peritoneal signs, nondistended. EXTREMITIES: No gross deformities. BACK: Nontender without deformity or crepitance. No flank tenderness. NEURO: AOx4. SKIN: Warm and dry PSYCH: Not anxious, is cooperative Initial Vital Signs Initial Vital Signs: Vital Signs Temperature 98.3 F 04/25/20 10:33 Pulse Rate 110 H 04/25/20 10:33 Respiratory Rate 16 04/25/20 10:33 Blood Pressure 138/68 04/25/20 10:33 Pulse Oximetry 98 04/25/20 10:33 Course Course Course Narrative: Patient at request of Dr. Stanton to have radiology intervention for percutaneous drainage. He will admit patient Decision to Admit Date: 04/25/20 Decision to Admit time: 13:06 Orders Ordered: Discontinued Medications Acetaminophen (Tylenol) 650 mg PO Q6HR PRN PRN Reason: Fever/Mild Pain (1-3) Last Admin: 04/26/20 05:15 Dose: 650 mg Documented by: Admin: 04/25/20 22:10 Dose: 650 mg Documented by: JORGE Acetaminophen (Tylenol) 650 mg PO QID PRN PRN Reason: pain Bupivacaine HCl (Sensorcaine 0.25% (Pf)) 30 ml INJ NOW ONE Stop: 04/25/20 18:52 Last Admin: 04/25/20 18:51 Dose: 10 ml Documented by: MORRIS Docusate Sodium (Colace) 100 mg PO BID JEANNETTE Last Admin: 04/28/20 09:50 Dose: 100 mg Documented by: Admin: 04/27/20 16:55 Dose: 100 mg Documented by: Admin: 04/27/20 09:43 Dose: 100 mg Documented by: Admin: 04/26/20 22:19 Dose: Not Given Documented by: Admin: 04/26/20 08:54 Dose: 100 mg Documented by: Admin: 04/25/20 22:09 Dose: 100 mg Documented by: JORGE Fentanyl (Sublimaze) 0 mcg IV Q5M PRN PRN Reason: Pain, Moderate (4-6) Last Admin: 04/25/20 20:18 Dose: 50 mcg Documented by: FUNMILAYO Hydromorphone HCl (Dilaudid) 1 mg IV NOW ONE Stop: 04/25/20 12:43 Last Admin: 04/25/20 12:53 Dose: 1 mg Documented by: NEY Hydromorphone HCl (Dilaudid) 1 mg IV NOW ONE Stop: 04/25/20 15:09 Last Admin: 04/25/20 15:11 Dose: 1 mg Documented by: NEY Hydromorphone HCl (Dilaudid) 0 mg IV Q5M PRN PRN Reason: Pain, Severe (7-10) Hydromorphone HCl (Dilaudid) 1 mg IV Q3H PRN PRN Reason: pain Last Admin: 04/26/20 05:15 Dose: 1 mg Documented by: Admin: 04/26/20 01:08 Dose: 1 mg Documented by: Admin: 04/25/20 21:21 Dose: 1 mg Documented by: JORGE Hydromorphone HCl (Dilaudid) 1 mg IV Q3H PRN PRN Reason: Pain, Severe (7-10) Last Admin: 04/27/20 13:02 Dose: 1 mg Documented by: Admin: 04/27/20 09:43 Dose: 1 mg Documented by: Admin: 04/27/20 06:22 Dose: 1 mg Documented by: Admin: 04/27/20 03:30 Dose: 1 mg Documented by: Admin: 04/27/20 00:12 Dose: 1 mg Documented by: Admin: 04/26/20 20:57 Dose: 1 mg Documented by: Admin: 04/26/20 17:52 Dose: 1 mg Documented by: JORGE Sodium Chloride (Normal Saline 0.9%) 500 mls @ 1,000 mls/hr IV BOLUS ONE Stop: 04/25/20 11:00 Last Admin: 04/25/20 11:24 Dose: Not Given Documented by: NEY Metronidazole (Flagyl) 500 mg in 100 mls @ 100 mls/hr IV NOW ONE Stop: 04/25/20 12:06 Last Infusion: 04/25/20 13:12 Dose: 0 mls/hr Documented by: Admin: 04/25/20 12:05 Dose: 100 mls/hr Documented by: KERON Ceftriaxone Sodium/Dextrose (Rocephin) 1 gm in 50 mls @ 100 mls/hr IV NOW ONE Stop: 04/25/20 11:36 Last Infusion: 04/25/20 12:05 Dose: 0 mls/hr Documented by: Admin: 04/25/20 11:36 Dose: 100 mls/hr Documented by: NEY Sodium Chloride (Normal Saline 0.9%) 1,000 mls @ 1,000 mls/hr IV BOLUS ONE Stop: 04/25/20 12:23 Last Infusion: 04/25/20 13:13 Dose: 0 mls/hr Documented by: Admin: 04/25/20 11:30 Dose: 1,000 mls/hr Documented by: NEY Sodium Chloride (Normal Saline 0.9%) 1,000 mls @ 1,000 mls/hr IV BOLUS ONE Stop: 04/25/20 13:13 Last Infusion: 04/25/20 14:14 Dose: 0 mls/hr Documented by: Admin: 04/25/20 13:12 Dose: 1,000 mls/hr Documented by: NEY Lactated Ringer's (Lactated Ringers) 1,000 mls @ 100 mls/hr IV CONT JEANNETTE Last Infusion: 04/25/20 20:26 Dose: 0 mls/hr Documented by: Admin: 04/25/20 18:50 Dose: 100 mls/hr Documented by: Infusion: 04/25/20 18:50 Dose: 100 mls/hr Documented by: Infusion: 04/25/20 15:20 Dose: 100 mls/hr Documented by: Admin: 04/25/20 14:48 Dose: 100 mls/hr Documented by: NEY Piperacillin/Tazobactam/Dextrose (Zosyn) 3.375 gm in 50 mls @ 100 mls/hr IV Q8H JEANNETTE Last Infusion: 04/25/20 15:21 Dose: 100 mls/hr Documented by: Admin: 04/25/20 14:49 Dose: 100 mls/hr Documented by: NEY Piperacillin/Tazobactam/Dextrose (Zosyn) 3.375 gm in 50 mls @ 100 mls/hr IV Q6H [facility] Last Infusion: 04/28/20 16:52 Dose: 0 mls/hr Documented by: Admin: 04/28/20 14:42 Dose: 100 mls/hr Documented by: Infusion: 04/28/20 10:20 Dose: 100 mls/hr Documented by: Admin: 04/28/20 09:50 Dose: 100 mls/hr Documented by: Infusion: 04/28/20 03:29 Dose: 100 mls/hr Documented by: Admin: 04/28/20 02:59 Dose: 100 mls/hr Documented by: Infusion: 04/27/20 21:17 Dose: 100 mls/hr Documented by: Admin: 04/27/20 20:47 Dose: 100 mls/hr Documented by: Infusion: 04/27/20 15:29 Dose: 0 mls/hr Documented by: Admin: 04/27/20 14:59 Dose: 100 mls/hr Documented by: Infusion: 04/27/20 10:13 Dose: 100 mls/hr Documented by: Admin: 04/27/20 09:43 Dose: 100 mls/hr Documented by: Infusion: 04/27/20 03:35 Dose: 0 mls/hr Documented by: Admin: 04/27/20 03:05 Dose: 100 mls/hr Documented by: Infusion: 04/26/20 20:58 Dose: 0 mls/hr Documented by: Admin: 04/26/20 20:22 Dose: 100 mls/hr Documented by: Infusion: 04/26/20 14:38 Dose: 100 mls/hr Documented by: Admin: 04/26/20 14:08 Dose: 100 mls/hr Documented by: Infusion: 04/26/20 10:04 Dose: 0 mls/hr Documented by: Admin: 04/26/20 09:00 Dose: 100 mls/hr Documented by: Infusion: 04/26/20 05:41 Dose: 0 mls/hr Documented by: Admin: 04/26/20 03:12 Dose: 100 mls/hr Documented by: Infusion: 04/25/20 22:39 Dose: 100 mls/hr Documented by: Admin: 04/25/20 22:09 Dose: 100 mls/hr Documented by: JORGE Lactated Ringer's (Lactated Ringers) 1,000 mls @ 42 mls/hr IV CONT JEANNETTE Last Admin: 04/27/20 16:38 Dose: 42 mls/hr Documented by: Infusion: 04/27/20 13:57 Dose: 42 mls/hr Documented by: Admin: 04/26/20 14:08 Dose: 42 mls/hr Documented by: Infusion: 04/26/20 14:08 Dose: 42 mls/hr Documented by: Admin: 04/25/20 21:24 Dose: 42 mls/hr Documented by: JORGE Influenza Virus Vaccine (Flu Vaccine) 0.5 ml IM .ONCE ONE Stop: 04/26/20 15:50 Last Admin: 04/27/20 14:46 Dose: Not Given Documented by: CYRIL Melatonin (Melatonin) 9 mg PO BEDTIME [facility] Last Admin: 04/27/20 20:44 Dose: 9 mg Documented by: DORY Metoclopramide HCl (Reglan) 10 mg IV Q6HR PRN PRN Reason: Nausea And Vomiting Last Admin: 04/27/20 14:59 Dose: 10 mg Documented by: Admin: 04/27/20 06:13 Dose: 10 mg Documented by: Admin: 04/26/20 20:22 Dose: 10 mg Documented by: JORGE Morphine Sulfate (Morphine) 4 mg IV NOW ONE Stop: 04/25/20 11:25 Last Admin: 04/25/20 11:31 Dose: 4 mg Documented by: NEY Naloxone HCl (Narcan) 0.2 mg IV Q2MIN PRN PRN Reason: Opiate Reversal Ondansetron HCl (Zofran) 4 mg IV NOW ONE Stop: 04/25/20 11:25 Last Admin: 04/25/20 11:31 Dose: 4 mg Documented by: NEY Ondansetron HCl (Zofran) 4 mg IV NOW PRN PRN Reason: Nausea And Vomiting Last Admin: 04/26/20 16:53 Dose: 4 mg Documented by: JORGE Ondansetron HCl (Zofran) 4 mg IV Q4HR PRN PRN Reason: Nausea And Vomiting Last Admin: 04/26/20 22:55 Dose: 4 mg Documented by: JORGE Oxycodone HCl (Percolone) 5 mg PO Q6HR PRN PRN Reason: Pain, Moderate (4-6) Oxycodone HCl (Percolone) 5 mg PO Q4HR PRN PRN Reason: Pain, Moderate (4-6) Oxycodone HCl (Percolone) 5 mg PO Q6H PRN PRN Reason: pain Last Admin: 04/26/20 08:56 Dose: 5 mg Documented by: Admin: 04/26/20 04:20 Dose: 5 mg Documented by: Admin: 04/25/20 22:11 Dose: 5 mg Documented by: JORGE Oxycodone HCl (Percolone) 5 mg PO Q4HR PRN PRN Reason: Pain, Moderate (4-6) Last Admin: 04/26/20 11:43 Dose: 5 mg Documented by: GARCIA Oxycodone/Acetaminophen (Percocet 5/325) 1 tab PO PACUNOW PRN PRN Reason: Mild or Moderate Pain Polyethylene Glycol (Miralax) 17 gm PO PRN PRN PRN Reason: Constipation Last Admin: 04/26/20 14:29 Dose: 17 gm Documented by: GARCIA Sodium Chloride (Normal Saline 0.9% Flush) 10 ml IV PRN PRN PRN Reason: Flush Sodium Chloride (Normal Saline 0.9% Flush) 10 ml IV BID JEANNETTE Last Admin: 04/28/20 08:58 Dose: Not Given Documented by: Admin: 04/27/20 21:07 Dose: 10 ml Documented by: Admin: 04/27/20 09:44 Dose: 10 ml Documented by: CYRIL Zolpidem Tartrate (Ambien) 5 mg PO BEDTIME PRN PRN Reason: Sleep Last Admin: 04/28/20 00:31 Dose: 5 mg Documented by: JERMAINE Reevaluation(s) Reevaluation #1: no new issues Time: 13:06 Consultations Consultation #1: s/w radiologist, early abscess and hemoperitoneum on ct Time: 13:06 Consultation #2: Spoke with surgeon Dr. Stanton, he will admit patient. He would like Radiology input for possible percutaneous drainage. Time: 13:06 Vital Signs Vital signs: Vital Signs - 8 hr 04/25/20 10:33 04/25/20 10:38 04/25/20 10:39 Temperature 98.3 F Pulse Rate 110 H 107 H 94 H Respiratory Rate 16 Blood Pressure 138/68 147/72 H Pulse Oximetry 98 100 100 04/25/20 11:00 04/25/20 11:30 04/25/20 12:00 Temperature Pulse Rate 97 H 97 H 86 Respiratory Rate Blood Pressure 135/67 130/67 139/65 Pulse Oximetry 100 100 100 04/25/20 12:33 04/25/20 13:00 Temperature Pulse Rate 99 H 97 H Respiratory Rate Blood Pressure 144/71 H 134/60 Pulse Oximetry 99 99 MDM - Abdominal Pain Differential Diagnosis Differential diagnosis: Likely abdominal pain and other (Postoperative pain/abdominal abscess) Lab Data Attestation: I reviewed the patient's lab results. Result diagrams: 04/28/20 08:05 04/25/20 10:49 Labs: Lab Results 04/25/20 04/25/20 04/25/20 Range/Units 10:49 10:49 10:49 WBC 15.0 H (4.5-11.0) X10^3/uL RBC 3.24 L (4.5-5.9) X10^6/uL Hgb 9.6 L (13.5-17.5) g/dL Hct 28.6 L (41-53) % MCV 88.4 (80-100) fL MCH 29.5 (26-34) PG MCHC 33.4 (30-36) % RDW 13.0 (11.6-14.8) % Plt Count 459 H (150-400) X10^3/uL Neut % (Auto) 77.3 H (50-75) % Lymph % (Auto) 7.2 L (25-40) % [place] % (Auto) 14.2 H (3-14) % Eos % (Auto) 0.7 L (2-4) % Baso % (Auto) 0.6 (0-2) % Neut # (Auto) 58899 H (0308-4230) /uL Lymph # (Auto) 1100 (1216-8500) /uL [place] # (Auto) 2100 H (0-900) /uL Eos # (Auto) 100 (0-450) /uL Baso # (Auto) 100 (0-100) /uL Sodium 133 L (137-145) mmol/L Potassium 3.8 (3.4-5.1) mmol/L Chloride 94 L (98-107) mmol/L Carbon Dioxide 33 H (22-32) mmol/L BUN 10 (9-20) mg/dL Creatinine 0.73 (0.66-1.25) mg/dL Estimated GFR > 60.0 (>60) mL/min BUN/Creatinine Ratio 13.7 (6-22) Glucose 110 H (70-100) mg/dL Lactate (0.7-2.1) mmol/L Calcium 9.5 (8.4-10.2) mg/dL Total Bilirubin 1.2 (0.2-1.3) mg/dL AST 27 (17-59) IU/L ALT 25 (<50) IU/L Alkaline Phosphatase 72 (38-126) U/L Total Protein 7.8 (6.3-8.2) g/dL Albumin 4.1 (3.5-5.0) g/dL Globulin 3.7 (1.7-4.1) g/dL Albumin/Globulin Ratio 1.1 (1.0-2.8) Procalcitonin 1.32 H (<0.5) ng/mL COVID-19 PCR (Negative) 04/25/20 04/25/20 Range/Units 10:49 11:40 WBC (4.5-11.0) X10^3/uL RBC (4.5-5.9) X10^6/uL Hgb (13.5-17.5) g/dL Hct (41-53) % MCV (80-100) fL MCH (26-34) PG MCHC (30-36) % RDW (11.6-14.8) % Plt Count (150-400) X10^3/uL Neut % (Auto) (50-75) % Lymph % (Auto) (25-40) % [place] % (Auto) (3-14) % Eos % (Auto) (2-4) % Baso % (Auto) (0-2) % Neut # (Auto) (7408-5481) /uL Lymph # (Auto) (2523-5577) /uL [place] # (Auto) (0-900) /uL Eos # (Auto) (0-450) /uL Baso # (Auto) (0-100) /uL Sodium (137-145) mmol/L Potassium (3.4-5.1) mmol/L Chloride (98-107) mmol/L Carbon Dioxide (22-32) mmol/L BUN (9-20) mg/dL Creatinine (0.66-1.25) mg/dL Estimated GFR (>60) mL/min BUN/Creatinine Ratio (6-22) Glucose (70-100) mg/dL Lactate 1.4 (0.7-2.1) mmol/L Calcium (8.4-10.2) mg/dL Total Bilirubin (0.2-1.3) mg/dL AST (17-59) IU/L ALT (<50) IU/L Alkaline Phosphatase (38-126) U/L Total Protein (6.3-8.2) g/dL Albumin (3.5-5.0) g/dL Globulin (1.7-4.1) g/dL Albumin/Globulin Ratio (1.0-2.8) Procalcitonin (<0.5) ng/mL COVID-19 PCR Negative (Negative) Imaging Data CT scan - abdomen/pelvis: Radiologist's Impression: [address] [address] [address] Scan Report Signed Patient: Toy Reed PMR#: [id number] : 1995Acct:[id number] Age/Sex: 24 / MDate of Service: 04/25/20 Loc: ED Accession Number: [id number] Procedure: CT abdomen pelvis w con Ordering Provider: Vicente Drew MD PROCEDURE: CT ABDOMEN PELVIS W CON INDICATIONS: IV contrast only/abdominal pain/fevers/recent surgery TECHNIQUE: After the administration of intravenous contrast, 5 mm thick sections acquired from the diaphragm to the symphysis. 5 mm coronal and sagittal reformats were acquired. For radiation dose reduction, the following was used: automated exposure control, adjustment of mA and/or kV according to patient size. COMPARISON: [facility], CT, CT ABDOMEN PELVIS W CON, 04/16/2020, 18:14. FINDINGS: Image quality: Excellent. ABDOMEN: Lung bases: Lung bases are clear. Heart size is normal. Solid organs: Liver is normal in size and enhancement. Gallbladder is unremarkable. Biliary system is non dilated. Pancreas enhances normally. Spleen is normal in size and enhancement. No adrenal nodules. Kidneys demonstrate normal size and enhancement, without hydronephrosis. Peritoneum and bowel: Status post interval appendectomy. There is a new, large, heterogeneous mixed density fluid collection extending along the entire right lateral abdomen measuring at least 11.1 cm x 7.9 cm in transverse dimension and 16.8 cm in craniocaudal dimension. There are irregular hyperdense foci noted within this collection suspicious for acute hemorrhage. Additionally, there is extensive hyperdense fluid seen throughout the abdomen and pelvis likely representing hemoperitoneum. There is early rim enhancement of the fluid collection predominantly near the posterior margin of the right hepatic lobe and right pericolic gutter. There are few locules of internal gas. Remaining bowel loops demonstrate normal wall thickness and caliber. Nodes and vessels: No retroperitoneal or mesenteric adenopathy by size criteria. Aorta and inferior vena cava are normal in size. Miscellaneous: No ventral hernias. PELVIS: Genitourinary: Bladder wall thickness is normal. Miscellaneous: No inguinal hernias or adenopathy. Bones: No suspicious bony lesions. No vertebral body compression fractures. IMPRESSION: Status post interval appendectomy with development of a large heterogeneous, mixed density fluid collection extending along the entire right lateral abdomen with early, near complete rim enhancement and scattered locules of gas. Findings are concerning for developing abscess. Concurrent hemorrhage is suspected. Additionally, there is a moderate-large amount of scattered hyperdense free fluid involving the abdomen and pelvis which is consistent with hemoperitoneum. Recommend further evaluation with surgical consultation. Findings were discussed with Dr. Drew of the emergency department at 1250 hrs PST Dictated by: Isaias Garner M.D. on 04/25/2020 at 11:43 AKST Approved by: Isaias Garner M.D. on 04/25/2020 at 12:08 MDM Narrative Medical decision making narrative: Appropriate for admission. Will need IV antibiotics and possible percutaneous drainage Discharge Plan Departure Patient Disposition: Admitted as Observation Clinical Impression: Abscess, intra-abdominal, postoperative Discharge Date/Time: 04/25/20 15:19 Instructions: DI for Prescription Opioid Use, [facility]: Wound Care Admit Date/Time: 04/25/20 14:36 Admit Provider: Mulugeta Stanton
[2020-04-25] MEDS: SODIUM CHLORIDE 0.9% 1,000 ML 1000 ML IV ×2 (11:30→13:12)
[2020-04-25] MEDS: ONDANSETRON 4 MG/2 ML INJ IV (11:31)
[2020-04-25] MEDS: MORPHINE 4 MG/ML INJ IV (11:31)
[2020-04-25 11:32] LABS: Procalcitonin 1.32 ng/mL (<0.5)
[2020-04-25] MEDS: CEFTRIAXONE 1 GM/50 ML FROZ.PIGGY IV (11:36)
[2020-04-25 12:02] LABS: COVID19 -Nasal RAPID Negative (Negative)
[2020-04-25] MEDS: metroNIDAZOLE 500 MG/100 ML PIGGYBACK 100 MG IV (12:05)
[2020-04-25] MEDS: HYDROMORPHONE 1 MG INJ IV ×2 (12:53→15:11)
[2020-04-25] MEDS: LACTATED RINGERS 1,000 ML 100 ML IV ×2 (14:48→18:50)
[2020-04-25] MEDS: PIPERACILLIN-TAZO 3.375 GM/50 ML FROZ.PIGGY IV ×2 (14:49→22:09)
--- NOTE | 2020-04-25 15:51 | PC.NURSE ---
Patient to room 1530 alert, oriented rates RLQ 5/10. Denies nausea. Oriented to room and call light.
--- NOTE | 2020-04-25 16:03 | P.HP_ITS ---
History of Present Illness History of Present Illness Date Patient Seen: 04/25/20 Time Patient Seen: 16:03 Chief complaint: pocket of pus from surgery Narrative: This is a 24-year-old male who underwent a laparoscopic appendectomy week ago for acute appendicitis. Him back to clinic today with complaint of worsening abdominal pain over the last 2 days and some low-grade fevers. He went to the emergency room laboratory studies demonstrate white blood cell count 15, hematocrit 29. Her CT scan demonstrates a large fluid collection along the right colic gutter concerning for abscess with hematoma. Patient History Medical History No significant past medical history (Acute) Surgical History (Reviewed 04/25/20 @ 11: by Vicente Drew MD) No pertinent past surgical history (Acute) Family & Social History Social History: household members friend(s) Prior Living Arrangements House Safety & Behavioral: Feels Safe in Current Yes Environment Been Physically Hurt or No Threatened By a Person Suicidal Ideation Description None Suicide Plan Description No Plan Tobacco & Substance use: Tobacco type cannabis/marijuana Smoking Status Current every day smoker alcohol intake current alcohol intake frequency 0-2 drinks per day Substance Use Type marijuana Meds Home Medications and Allergies Home Medications Medication Instructions Recorded Confirmed Type acetaminophen [Tylenol] 650 mg PO QID PRN #60 cap 04/17/20 04/25/20 Rx docusate sodium [Colace] 100 mg PO BID #30 cap 04/17/20 04/25/20 Rx oxycodone 5 mg PO Q6H PRN #30 tab 04/17/20 04/25/20 Rx Allergies Allergy/AdvReac Type Severity Reaction Status Date / Time No Known Drug Allergies Allergy Verified 04/25/20 10:36 Review of Systems Review of Systems Narrative: A 10 point review of systems is negative except as noted in the HPI Exam Vital Signs (past 8 hours): - 04/25/20 10:33 04/25/20 10:38 04/25/20 10:39 Temperature 98.3 F Pulse Rate 110 H 107 H 94 H Respiratory Rate 16 Blood Pressure 138/68 147/72 H Pulse Oximetry 98 100 100 04/25/20 11:00 04/25/20 11:30 04/25/20 12:00 Temperature Pulse Rate 97 H 97 H 86 Respiratory Rate Blood Pressure 135/67 130/67 139/65 Pulse Oximetry 100 100 100 04/25/20 12:33 04/25/20 13:00 04/25/20 15:40 Temperature 98.1 F Pulse Rate 99 H 97 H 101 H Respiratory Rate 18 Blood Pressure 144/71 H 134/60 153/79 H Pulse Oximetry 99 99 98 Oxygen Delivery Method Room Air Narrative Exam Narrative: General adult male alert oriented no acute distress Chest nonlabored respirations Abdomen tender right lower quadrant no peritonitis incisions clean dry intact Objective Labs Result Diagrams: 04/25/20 10:49 04/25/20 10:49 Labs: Laboratory Results - last 24 hr 04/25/20 04/25/20 04/25/20 10:49 10:49 10:49 WBC 15.0 H RBC 3.24 L Hgb 9.6 L Hct 28.6 L MCV 88.4 MCH 29.5 MCHC 33.4 RDW 13.0 Plt Count 459 H Neut % (Auto) 77.3 H Lymph % (Auto) 7.2 L [place] % (Auto) 14.2 H Eos % (Auto) 0.7 L Baso % (Auto) 0.6 Neut # (Auto) 06165 H Lymph # (Auto) 1100 [place] # (Auto) 2100 H Eos # (Auto) 100 Baso # (Auto) 100 Sodium 133 L Potassium 3.8 Chloride 94 L Carbon Dioxide 33 H BUN 10 Creatinine 0.73 Estimated GFR > 60.0 BUN/Creatinine Ratio 13.7 Glucose 110 H Lactate Calcium 9.5 Total Bilirubin 1.2 AST 27 ALT 25 Alkaline Phosphatase 72 Total Protein 7.8 Albumin 4.1 Globulin 3.7 Albumin/Globulin Ratio 1.1 Procalcitonin 1.32 H COVID-19 PCR 04/25/20 04/25/20 10:49 11:40 WBC RBC Hgb Hct MCV MCH MCHC RDW Plt Count Neut % (Auto) Lymph % (Auto) [place] % (Auto) Eos % (Auto) Baso % (Auto) Neut # (Auto) Lymph # (Auto) [place] # (Auto) Eos # (Auto) Baso # (Auto) Sodium Potassium Chloride Carbon Dioxide BUN Creatinine Estimated GFR BUN/Creatinine Ratio Glucose Lactate 1.4 Calcium Total Bilirubin AST ALT Alkaline Phosphatase Total Protein Albumin Globulin Albumin/Globulin Ratio Procalcitonin COVID-19 PCR Negative Assessment & Plan Assessment and plan (1) Intra-abdominal fluid collection: Status: Acute Assessment & Plan narrative: 24-year-old male 1 week after laparoscopic appendectomy here with a intra abdominal fluid collection consistent with abscess and hematoma. Recommended that we proceed to the operating room for diagnostic laparoscopy and drainage of the abdominal fluid collection. We discussed the operative risks including bleeding infection damage to surrounding structures. His questions have been answered he is in agreement with this plan. Quality VTE Deep Vein Thrombosis/Pulmonary Embolism Present on Admission: No
--- NOTE | 2020-04-25 18:30 | SUR.OPER ---
Supine on padded OR bed, head on pillow, arms secured on padded arm boards at <90 degrees abduction, legs uncrossed, safety belt at thigh, tape over blanket over lower legs.
[2020-04-25] MEDS: BUPIVACAINE 0.25% (PF) VIAL 30 ML INJ (18:51)
--- NOTE | 2020-04-25 20:11 | P.OP_ITS ---
Operative Date/Time/Diagnoses Date of procedure: 04/25/20 Time of procedure: 20:11 Pre-op diagnosis: intra abdominal fluid collection Post-op diagnosis: other (infected hematoma) Procedure & Clinicians Procedure: laparoscopic drainage of intra abdominal hematoma Same procedure as scheduled: Yes Indications: 24-year-old male who underwent laparoscopic appendectomy 9 days ago presented to the office today with worsening abdominal pain tachycardia he went to the emergency room imaging demonstrates an organizing fluid collection of the right colic gutter leukocytosis and decreased hematocrit. Taken the operating for laparoscopic exploration and drainage of fluid collection. Surgeon: Mulugeta Dodge Click Yes if Unassisted: Yes Anesthesia Type: General Operative Notes Findings: large volume of hematoma along the right paracolic gutter no active hemorrhage. Specimen(s): other (peritoneal fluid) Estimated Blood Loss (mL): 20 Procedure in detail: Patient was brought to the operating room placed supine table. Bilateral lower extremity compression devices were applied. General anesthesia was induced and he was intubated with an endotracheal tube. He received Zosyn prior to skin incision. Time-out was performed. He was prepped and draped in sterile fashion. Local anesthesia was infiltrated into the skin of the umbilicus. The prior skin incision was opened the fascia was elevated sharply incised the abdomen was entered atraumatically. 12 mm balloon trocar was then inserted and pneumoperitoneum was established. Camera was then placed into the abdomen and general inspection was made. There was a large volume of hematoma principally witihin the right pericolic gutter. A 5 mm port was then placed in the left lower quadrant as well as the suprapubic position. Using combination of suction sr. strategic sourcing manager and careful blunt dissection the flimsy adhesions were carefully dissected in order to visualize the right side of the abdomen. There was a organizing hematoma and associated purulence within the right lower quadrant a sample of the peritoneal fluid was sent for culture. The freely mobile solid fibrinous debris was removed. The abdomen was copiously lavaged with 10 L sterile saline in all four quadrants. Careful inspection was made for intra loop hematomas and these were evacuated. There was no evidence of active hemorrhage. Two drains a 10 [place] KRIS was placed along the right colic gutter as well as a 19 [place] Govind into the pelvis. These drains were brought out through the 5 mm trocar sites. The fascia at the umbilicus was reapproximated using 0 Vicryl suture [id number] fashion. The umbilicus was then closed with loosely with Monocryl. Patient emerged from anesthesia was transferred to recovery room in stable condition. Complications: none Post-operative Condition: stable Disposition: Acute Care
[2020-04-25] MEDS: fentaNYL 100 MCG/2 ML INJ IV (20:18)
[2020-04-25] MEDS: HYDROMORPHONE 2 MG INJ 1 MG IV (21:21)
[2020-04-25] MEDS: LACTATED RINGERS 1,000 ML 42 ML IV (21:24)
[2020-04-25] MEDS: DOCUSATE 100 MG CAPSULE PO (22:09)
[2020-04-25] MEDS: ACETAMINOPHEN 325 MG TABLET 650 MG PO (22:10)
[2020-04-25] MEDS: OXYCODONE IR 5 MG TABLET PO (22:11)
[2020-04-26] MEDS: HYDROMORPHONE 2 MG INJ 1 MG IV ×2 (01:08→05:15)
[2020-04-26] MEDS: PIPERACILLIN-TAZO 3.375 GM/50 ML FROZ.PIGGY IV ×4 (03:12→20:22)
[2020-04-26] MEDS: OXYCODONE IR 5 MG TABLET PO ×3 (04:20→11:43)
[2020-04-26 05:00] VITALS: BP 138/80; PULSE 91; RESP 14; TEMP 37.3; O2SAT 98
[2020-04-26] MEDS: ACETAMINOPHEN 325 MG TABLET 650 MG PO (05:15)
[2020-04-26 05:49] LABS: Add Manual Diff / Slide Review NO; Basophils Absolute Auto 0 /uL (0-100); Basophils Percent Auto 0.2 % (0-2); Eosinophils Absolute Auto 0 /uL (0-450); Hematocrit 26.7 % (41-53); Hemoglobin 9.1 g/dL (13.5-17.5); Lymphocytes Absolute Auto 300 /uL (1100-4500); Lymphocytes Percent Auto 2.9 % (25-40); Mean Corpuscular HGB Conc 33.9 % (30-36); Mean Corpuscular Volume 88.4 fL (80-100); Monocytes Absolute Auto 800 /uL (0-900); Monocytes Percent Auto 6.8 % (3-14); Neutrophils Absolute Auto 10200 /uL (1500-7000); Neutrophils Percent Auto 90.1 % (50-75); Platelet Count 478 X10^3/uL (150-400); Red Blood Cell Count 3.02 X10^6/uL (4.5-5.9); Red Cell Distribution Width 13.6 % (11.6-14.8); White Blood Cell Count 11.4 X10^3/uL (4.5-11.0)
[2020-04-26 08:15] VITALS: BP 132/72; PULSE 75; RESP 16; TEMP 36.6; O2SAT 100
[2020-04-26] MEDS: DOCUSATE 100 MG CAPSULE PO (08:54)
[2020-04-26 12:00] VITALS: BP 153/79; PULSE 85; RESP 16; TEMP 36.5; O2SAT 100
--- NOTE | 2020-04-26 13:50 | P.PN_ITS ---
Subjective Subjective Date Patient Seen: 04/26/20 Time Patient Seen: 13:50 Interval history: No acute overnight events. Feeling significantly better than he did yesterday. Hungry Exam Vital Signs (past 8 hours): - 04/26/20 08:15 Temperature 97.8 F Pulse Rate 75 Respiratory Rate 16 Blood Pressure 132/72 Pulse Oximetry 100 Oxygen Delivery Method Room Air Oxygen Flow Rate 0 Narrative Exam Narrative: General adult male alert oriented no acute distress Abdomen appropriately tender to palpation. Two abdominal drains with hematoma content. Objective Labs Result Diagrams: 04/26/20 05:17 04/25/20 10:49 Labs: Laboratory Results - last 24 hr 04/26/20 05:17 WBC 11.4 H RBC 3.02 L Hgb 9.1 L Hct 26.7 L MCV 88.4 MCH 30.0 MCHC 33.9 RDW 13.6 Plt Count 478 H Neut % (Auto) 90.1 H Lymph % (Auto) 2.9 L [place] % (Auto) 6.8 Eos % (Auto) 0.0 L Baso % (Auto) 0.2 Neut # (Auto) 97919 H Lymph # (Auto) 300 L [place] # (Auto) 800 Eos # (Auto) 0 Baso # (Auto) 0 Assessment & Plan Post-op Postoperative Procedures: Procedures Operation Date: 04/25/20 17:30 Actual Procedures Side Surgeon p Diagnostic Laparoscopy Mulugeta Dodge MD Postoperative status narrative: 24-year-old male who is 1 week after an appendectomy who returned with an infected hematoma. He has taken the operating room yesterday underwent laparoscopic drainage of intra-abdominal fluid collection. Significantly better today. Micro shows Gram-negative rods within the peritoneal fluid the abscess wall and hematoma were evacuated. Plan -regular diet -Zosyn -drain teaching -anticipate discharge home tomorrow with drains with oral antibiotics Quality VTE Deep Vein Thrombosis/Pulmonary Embolism Present on Admission: No
[2020-04-26] MEDS: LACTATED RINGERS 1,000 ML 42 ML IV (14:08)
[2020-04-26] MEDS: polyethylene glycoL 3350 17 GM POWD.PACK PO (14:29)
--- NOTE | 2020-04-26 15:02 | CM.DANOTE ---
Addendum entered by Syeda Spring LPN 04/26/20 15:12: Checked in with pt and introduced self and role. Pt confirms he lives in [address] owned by his parents and has roommates. Parents no longer live in town. Pt reports he does have people in town who can help him out if need be. Today he is being assisted back to bed by MECHANISM ASSEMBLER. Looks uncomfortable. P: home as per note below when stable for same. Dr. Dodge will be on this weekend. Original Note: Discharge Planning/Care Management DCP: assessment: case received, EMR reviewed. Discussed in Team Rounds. Pt is a 24 year old male who admitted yesterday afternoon to care of [facility]: Dr. Dodge. Dr. Dodge took him to surgery last evening for problems arising from the appendectomy done a week ago. Payer: [facility]. Dr. Dodge has checked on pt this afternoon and says at this time he expects pt to d/c tomorrow to home setting after drain teaching and on oral antibiotics. Followup will be with Dr. Dodge in clinic. DCP team will be following. CM Discharge Assessment Start: 04/26/20 15:00 Freq: Status: Active Protocol: Document 04/26/20 15:01 ITV (Rec: 04/26/20 15:02 IT [id number]) Discharge Planning Assessment Advance Directives? No History Provided By Medical Record Has Patient been admitted in last 30 Yes days? Comment 04/16-04/17: laproscopic appendectomy Prior Living Arrangements House Household Members friend(s) Independent with ADL's Yes Is patient alert and oriented? Yes
[2020-04-26 15:22] VITALS: BP 149/74; PULSE 85; RESP 20; TEMP 37.1; O2SAT 99
[2020-04-26] MEDS: ONDANSETRON 4 MG/2 ML INJ IV ×2 (16:53→22:55)
[2020-04-26] MEDS: HYDROMORPHONE 1 MG INJ IV ×2 (17:52→20:57)
[2020-04-26 19:51] VITALS: BP 136/75; PULSE 85; RESP 18; TEMP 36.8; O2SAT 100
[2020-04-26] MEDS: METOCLOPRAMIDE 10 MG/2 ML INJ IV (20:22)
[2020-04-27] MEDS: HYDROMORPHONE 1 MG INJ IV ×5 (00:12→13:02)
[2020-04-27 00:16] VITALS: BP 155/77; PULSE 78; RESP 16; TEMP 36.2; O2SAT 94
[2020-04-27] MEDS: PIPERACILLIN-TAZO 3.375 GM/50 ML FROZ.PIGGY IV ×4 (03:05→20:47)
[2020-04-27 05:29] LABS: Add Manual Diff / Slide Review NO; Basophils Absolute Auto 0 /uL (0-100); Basophils Percent Auto 0.2 % (0-2); Eosinophils Absolute Auto 0 /uL (0-450); Eosinophils Percent Auto 0.1 % (2-4); Hematocrit 27.8 % (41-53); Hemoglobin 9.3 g/dL (13.5-17.5); Lymphocytes Absolute Auto 1500 /uL (1100-4500); Mean Corpuscular HGB Conc 33.5 % (30-36); Mean Corpuscular Hemoglobin 29.5 PG (26-34); Monocytes Absolute Auto 1700 /uL (0-900); Monocytes Percent Auto 11.2 % (3-14); Neutrophils Absolute Auto 12000 /uL (1500-7000); Neutrophils Percent Auto 78.5 % (50-75); Platelet Count 653 X10^3/uL (150-400); Red Blood Cell Count 3.16 X10^6/uL (4.5-5.9); Red Cell Distribution Width 13.4 % (11.6-14.8); White Blood Cell Count 15.3 X10^3/uL (4.5-11.0)
[2020-04-27 06:00] VITALS: BP 145/87; PULSE 89; RESP 18; TEMP 36.4; O2SAT 98
[2020-04-27] MEDS: METOCLOPRAMIDE 10 MG/2 ML INJ IV ×2 (06:13→14:59)
[2020-04-27 08:49] VITALS: BP 150/83; PULSE 74; RESP 15; TEMP 36.6; O2SAT 94
[2020-04-27] MEDS: DOCUSATE 100 MG CAPSULE PO ×2 (09:43→16:55)
[2020-04-27] MEDS: SODIUM CHLORIDE 0.9% FLUSH 10 ML IV ×2 (09:44→21:07)
--- NOTE | 2020-04-27 10:09 | PM.PNPO.1 ---
Subjective Subjective Date Patient Seen: 04/27/20 Time Patient Seen: 10:09 Interval history: Two episodes of emesis overnight. Feels significantly better this morning. He is passing gas and stool feels less bloated than yesterday. Exam Vital Signs (past 8 hours): - 04/27/20 06:00 04/27/20 08:49 Temperature 97.6 F 97.8 F Pulse Rate 89 74 Respiratory Rate 18 15 Blood Pressure 145/87 H 150/83 H Pulse Oximetry 98 94 Oxygen Delivery Method Room Air Oxygen Flow Rate 0 Narrative Exam Narrative: General adult male alert oriented no acute distress Abdomen soft mildly distended compressible drains left lower quadrant serosanguineous output Objective Labs Result Diagrams: 04/27/20 05:05 04/25/20 10:49 Labs: Laboratory Results - last 24 hr 04/27/20 05:05 WBC 15.3 H RBC 3.16 L Hgb 9.3 L Hct 27.8 L MCV 88.0 MCH 29.5 MCHC 33.5 RDW 13.4 Plt Count 653 H Neut % (Auto) 78.5 H Lymph % (Auto) 10.0 L [place] % (Auto) 11.2 Eos % (Auto) 0.1 L Baso % (Auto) 0.2 Neut # (Auto) 26534 H Lymph # (Auto) 1500 [place] # (Auto) 1700 H Eos # (Auto) 0 Baso # (Auto) 0 Assessment & Plan Post-op Postoperative Procedures: Procedures Operation Date: 04/25/20 17:30 Actual Procedures Side Surgeon p Diagnostic Laparoscopy Mulugeta Dodge MD Postoperative status narrative: 24-year-old male postoperative day 2 status post diagnostic laparoscopy drainage of hematoma and abscess. Plan -postoperative ileus-anticipated given the intra-abdominal infection and hematoma. Okay for clear liquid diet if continued emesis then NPO. -acute blood loss anemia-hematocrit stable will monitor drain output -SCDs and chemical VT prophylaxis contraindicated -intra-abdominal abscess-continue Zosyn Quality VTE Deep Vein Thrombosis/Pulmonary Embolism Present on Admission: No
--- NOTE | 2020-04-27 10:09 | PC.NURSE ---
Addendum entered by Heather White R.N. 04/27/20 14:44: Patient ambulating in hallway w/ FOOD PREPARER. Still has some hiccups which are bothersome. Addendum entered by Heather White R.N. 04/27/20 14:24: Telephoned Dr. Dodge and alerted him of patient progress at 1425. Addendum entered by Heather White R.N. 04/27/20 13:02: Patient encouraged to take in clear liquid diet for lunch. He had some jello and coffee. Was educated about trying to continue progress to discharge at some point and that he needed to be eating and moving forward to be able to go home. Original Note: No active bowel tones heard with assessment. Patient complains of abdominal pain 5/10, no complaints of Nausea. VSS. Both drains are patent and draining serosanguineous fluid. Bulky dressing is CDI. Patient doesn't seem very motivated. Patient is refusing breakfast and just wants to sleep.
[2020-04-27 12:21] VITALS: BP 142/79; PULSE 69; RESP 15; TEMP 36.9; O2SAT 97
[2020-04-27 15:10] VITALS: BP 146/85; PULSE 83; RESP 16; TEMP 36.9; O2SAT 96
[2020-04-27] MEDS: LACTATED RINGERS 1,000 ML 42 ML IV (16:38)
[2020-04-27 19:19] VITALS: BP 144/79; PULSE 82; RESP 16; TEMP 37.1; O2SAT 100
[2020-04-27] MEDS: MELATONIN 3 MG TABLET 9 MG PO (20:44)
--- NOTE | 2020-04-27 21:52 | PC.NURSE ---
Pt is A and O x 4, VSS. He is passing gas and has had two small loose stools this shift. He has pain but does not want any constipating medications. He has eaten bites of jello, a serving of broth, and 120 mLs of apple juice. The KRIS drain in his L LQ has put out sero sanguineness fluild, approx 300 mLs on evening shift, MD aware. The Govind drain has put out approx 20 mLs. Pt is ambulating in the hallway. Pt states he does not sleep well and not at all since his initial surgery. He was given melatonin this shift. po, 9 mg and able to sleep.
[2020-04-28] VITALS: BP 166/82; PULSE 104; RESP 16; TEMP 36.9; O2SAT 100
[2020-04-28] MEDS: ZOLPIDEM 5 MG TABLET PO (00:31)
--- NOTE | 2020-04-28 02:53 | PC.NURSE ---
Dr. Dodge notified that pt. had a large amount of unmeasured greenish emesis. Ordered patient to be NPO for now. Will cont. POC & monitor.
[2020-04-28] MEDS: PIPERACILLIN-TAZO 3.375 GM/50 ML FROZ.PIGGY IV ×3 (02:59→14:42)
--- NOTE | 2020-04-28 05:42 | PC.NURSE ---
nurse found IV Zosyn hanging from previous shift that did not get infused, it was time for next dose, so the nurse called and left a message for the pharmacy and notified of missed dose, also sent QMM and sent an email to notify route rider supervisor and district manager primary care sales.
[2020-04-28 06:00] VITALS: BP 154/78; PULSE 86; RESP 16; TEMP 36.6; O2SAT 96
[2020-04-28 08:29] LABS: Add Manual Diff / Slide Review NO; Basophils Absolute Auto 100 /uL (0-100); Basophils Percent Auto 0.4 % (0-2); Eosinophils Absolute Auto 100 /uL (0-450); Eosinophils Percent Auto 0.6 % (2-4); Hematocrit 27.8 % (41-53); Hemoglobin 9.4 g/dL (13.5-17.5); Lymphocytes Absolute Auto 1600 /uL (1100-4500); Lymphocytes Percent Auto 12.1 % (25-40); Mean Corpuscular HGB Conc 33.8 % (30-36); Mean Corpuscular Hemoglobin 29.5 PG (26-34); Mean Corpuscular Volume 87.3 fL (80-100); Monocytes Absolute Auto 1800 /uL (0-900); Monocytes Percent Auto 13.5 % (3-14); Neutrophils Absolute Auto 9800 /uL (1500-7000); Neutrophils Percent Auto 73.4 % (50-75); Platelet Count 704 X10^3/uL (150-400); Red Blood Cell Count 3.19 X10^6/uL (4.5-5.9); Red Cell Distribution Width 13.3 % (11.6-14.8); White Blood Cell Count 13.4 X10^3/uL (4.5-11.0)
[2020-04-28 09:00] VITALS: BP 160/84; PULSE 90; RESP 15; TEMP 37.1; O2SAT 100
--- NOTE | 2020-04-28 09:18 | CM.DPC ---
DCP Cont: Checked in with patient's nurse, Giovany. Stated that patient's mother will be here to see patient, she is from out of town. Patient has noted decreased drainage from his drains. He did have some emesis this morning, and is now NPO. P: DCP to continue to follow. Patient should be able to go home when he is medically stable. May need resources for local providers. Marianna Peralta RN/Sound Recording Technician
[2020-04-28] MEDS: DOCUSATE 100 MG CAPSULE PO (09:50)
[2020-04-28 10:00] VITALS: BP 160/84; PULSE 90; RESP 15; TEMP 37.1; O2SAT 100
[2020-04-28 12:19] VITALS: BP 141/71; PULSE 89; RESP 15; TEMP 36.8; O2SAT 100
[2020-04-28 15:05] VITALS: BP 140/74; PULSE 78; RESP 16; TEMP 37.6; O2SAT 99
--- NOTE | 2020-04-28 17:25 | PM.DS.1 ---
History of Present Illness History of Present Illness Chief complaint: pocket of pus from surgery Narrative: This is a 24-year-old male who underwent a laparoscopic appendectomy week ago for acute appendicitis. Him back to clinic today with complaint of worsening abdominal pain over the last 2 days and some low-grade fevers. He went to the emergency room laboratory studies demonstrate white blood cell count 15, hematocrit 29. Her CT scan demonstrates a large fluid collection along the right colic gutter concerning for abscess with hematoma. Discharge Providers Provider Date of admission: 04/25/20 14:36 Discharge Date: 04/28/20 Discharge provider: Mulugeta Dodge MD Summary Hospital Course Discharge Diagnosis: Intra-abdominal hematoma Hospital Course: Patient was taken the operating room 04/25 for diagnostic laparoscopy. Abdominal hematoma with abscess cavity was debrided. He was treated with IV antibiotics postoperatively. He had a postoperative ileus that resolved spontaneously. On the date of discharge he is tolerant of a regular diet, afebrile, hematocrit stable, leukocytosis down trending, bowel function has returned. Status at Discharge Cognitive/behavioral status at discharge: oriented Exam Vital Signs (past 8 hours): - 04/28/20 10:00 04/28/20 12:19 04/28/20 15:05 Temperature 98.8 F 98.2 F 99.7 F H Pulse Rate 90 89 78 Respiratory Rate 15 15 16 Blood Pressure 160/84 H 141/71 H 140/74 Pulse Oximetry 100 100 99 Oxygen Delivery Method Room Air Oxygen Flow Rate 0 Narrative Exam Narrative: General adult male alert oriented no acute distress Abdomen soft appropriately tender to palpation drains serosanguineous left lower quadrant Objective Labs Result Diagrams: 04/28/20 08:05 04/25/20 10:49 Labs: Laboratory Results - last 24 hr 04/28/20 08:05 WBC 13.4 H RBC 3.19 L Hgb 9.4 L Hct 27.8 L MCV 87.3 MCH 29.5 MCHC 33.8 RDW 13.3 Plt Count 704 H Neut % (Auto) 73.4 Lymph % (Auto) 12.1 L [place] % (Auto) 13.5 Eos % (Auto) 0.6 L Baso % (Auto) 0.4 Neut # (Auto) 9800 H Lymph # (Auto) 1600 [place] # (Auto) 1800 H Eos # (Auto) 100 Baso # (Auto) 100 Discharge Plan Discharge Plan Patient Disposition: Home Discharge orders & Medications Prescriptions: New oxycodone 5 mg tablet 5 mg PO Q6H PRN (Reason: pain) Qty: 30 RF: 0 amoxicillin-pot clavulanate [Augmentin] 875-125 mg tablet 1 tab PO BID Qty: 30 RF: 0 Continued docusate sodium [Colace] 100 mg capsule 100 mg PO BID Qty: 30 RF: 0 oxycodone 5 mg tablet 5 mg PO Q6H PRN (Reason: pain) Qty: 30 RF: 0 acetaminophen [Tylenol] 325 mg capsule 650 mg PO QID PRN (Reason: pain) Qty: 60 RF: 0 Visit Report/Discharge Packet Instructions: DI for Prescription Opioid Use, [facility]: Wound Care Visit Report Forms: Patient Portal/API, Stroke Signs & Symptoms Quality VTE Deep Vein Thrombosis/Pulmonary Embolism Present on Admission: No
--- NOTE | 2020-04-28 19:35 | PC.NURSE ---
Evening Shift/ Discharge Note- Patient discharged home. Discharge instructions and education reviewed with patient and signed. dressing to left drain changed, area cleaned and new dressing applied. IV line removed and bandaid applied. Patient dressed self and packed up all personal belongings. Patient left via wheelchair with all personal belongings. Mother met us at ER enterance.
== END 2020-04-28 18:30 | disposition home or self-care (01) | DRG 856 ==
LOC: ED 13:07 → AC 15:11
PROVIDERS: Admitting Provider Surgery; Emergency Provider Emergency Medicine; Referring Provider Emergency Medicine; Visit Provider Surgery
PROC: 0WCG4ZZ Extirpation of Matter from Peritoneal Cavity, Percutaneous Endoscopic Approach (ICD-10-PCS; CPT 49320; principal; 2020-04-25 17:30)
DX: T81.43XA Infection following a procedure, organ and space surgical site, initial encounter (principal); K65.1 Peritoneal abscess; K91.870 Postprocedural hematoma of a digestive system organ or structure following a digestive system procedure; D62 Acute posthemorrhagic anemia
CPT/HCPCS: 36415; 49322; 74177; 80053; 83605; 84145; 85025; 87040; 87070; 87075; 87205; 87635; 96361; 96365; 96366; 96375; 99284; J1100; J1170; J1885; J2250; J2270; J2405; J2543; J2704; J2765; J3010; Q9967